=== PATIENT | male | born 1975 | race Caucasian/White ===

== ENCOUNTER 2019-12-18 22:13 | Emergency (ER) | payer BC ==
[~2019-12-18] VITALS: Ht 167.6 cm; Wt 56.7 kg
[2019-12-18] MEDS ORDERED: SODIUM CHLORIDE 0.9% 1000ML 1,000 ML IV ONE (22:30)
--- NOTE | 2019-12-18 22:38 | Emergency Department Note ---
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 EATING OR DRINKING WELL FOR THE PAST FEW DAYS, STATES FEELS WEAK/DIZZY, WAS TOLD BY COWORKERS THAT HE PASSED OUT TODAY, +NAUSEA, NO VOMITING; PT IN NAD, PT STATES IT IS VERY HOT IN THE WAREHOUSE Historian: Patient Arrival Mode: Car Onset (how long ago): hour(s) (3) Location: ALL OVER Quality: WEAK, LIGHT HEADED Radiation: Reports non-radiation Severity: moderate Onset quality: unable to specify Duration (how long): day(s) (2) Timing of current episode: constant Progression: worsening Context: Reports other (TOLD BY [employer] WORKERS HE PASSED OUT IN BREAK ROOM); Denies recent illness, Denies recent surgery Relieving factors: none Exacerbating factors: none Associated symptoms: Reports denies other symptoms Past Medical/Family History Physician Review I have reviewed the patient's past medical and family history. Any updates have been documented here. Past Medical History Recent Fever: No Clinical Suspicion of Infectio: No New/Unexplained Change in Ment: No Past Medical History: None Past Surgical History: None Social History Smoking Cessation: Never Smoker Alcohol Use: Occasional Any Illegal Drug Use: No Physically hurt or threatened: No Family History Family history of heart diseas: Yes Other family history HTN,CAD Review of Systems Review of Systems Constitutional: Reports weakness EENTM: Reports no symptoms Cardiovascular: Reports no symptoms Respiratory: Reports no symptoms Gastrointestinal: Reports no symptoms Genitourinary: Reports no symptoms Musculoskeletal: Reports no symptoms Integumentary: Reports no symptoms Neurological: Reports as per HPI Psychological: Reports no symptoms Endocrine: Reports no symptoms Hematological/Lymphatic: Reports no symptoms Physical Exam Related Data Triage Vital Signs Vital Signs Date Time Temp Pulse Resp B/P (MAP) Pulse Ox O2 Delivery O2 Flow Rate FiO2 12/18/19 22:22 98.3 69 16 117/80 100 Room Air Vital signs reviewed: Yes Physical Exam CONSTITUTIONAL Constitutional: Present well-developed, Present well-nourished HENT HENT: Present normocephalic, Present atraumatic, Present mucosae dry, Present nose normal HENT L/R: Present left ext ear normal, Present right ext ear normal EYES Eyes: Reports PERRL, Reports conjunctivae normal NECK Neck: Present ROM normal PULMONARY Pulmonary: Present effort normal, Present breath sounds normal CARDIOVASCULAR Cardiovascular: Present regular rhythm, Present heart sounds normal, Present capillary refill normal, Present normal rate GASTROINTESTINAL Abdominal: Present soft, Present nontender, Present bowel sounds normal GENITOURINARY Genitourinary: Present exam deferred SKIN Skin: Present warm, Present dry MUSCULOSKELETAL Musculoskeletal: Present ROM normal NEUROLOGICAL Neurological: Present alert, Present oriented x 3, Present no gross motor or sensory deficits PSYCHOLOGICAL Psychological: Present mood/affect normal, Present judgement normal Results Laboratory Laboratory Laboratory Tests Test 12/18/19 22:30 12/18/19 22:25 Urine Color Yellow (YELLOW) Urine Clarity Clear (CLEAR) Urine pH 7 (5 - 7) Urine Specific [place] 1.020 (1.010-1.025) Urine Protein Negative (NEGATIVE) Urine Glucose (UA) Negative (NEGATIVE) Urine Ketones Negative (NEGATIVE) Urine Blood Negative (NEGATIVE) Urine Nitrite Negative (NEGATIVE) Urine Bilirubin Negative (NEGATIVE) Urine Urobilinogen 0.2 mg/dL (0.2 - 1) Urine Leukocyte Esterase Negative (NEGATIVE) Urine RBC 0-5 /HPF (0-5) Urine WBC 0-5 /HPF (0-5) Urine Epithelial Cells Rare /LPF (NONE) Urine Bacteria Few /HPF (NONE) Urine Mucus Few (RARE) Urine Opiates Screen Negative (NEGATIVE) Urine Methadone Screen Negative (NEGATIVE) Urine Barbiturates Screen Negative (NEGATIVE) Urine Phencyclidine Screen Negative (NEGATIVE) Urine Amphetamines Screen Negative (NEGATIVE) Urine Methamphetamines Screen Negative (NEGATIVE) Urine Benzodiazepines Screen Negative (NEGATIVE) Urine Cocaine Screen Negative (NEGATIVE) Urine Cannabinoids Screen Positive (NEGATIVE) White Blood Count 16.38 x10e3/uL (4.8-10.8) Red Blood Count 4.47 x10e6/uL (4.3-5.7) Hemoglobin 14.0 g/dL (14.0-18.0) Hematocrit 41.2 % (38.2-49.6) Mean Corpuscular Volume 92.2 fL (81-99) Mean Corpuscular Hemoglobin 31.3 pg (28-32) Mean Corpuscular Hemoglobin Concent 34.0 g/dL (31-35) Red Cell Distribution Width 13.0 % (11.7-14.4) Platelet Count 397 x10e3/uL (140-360) Neutrophils (%) (Auto) 83.3 % (38.7-80.0) Lymphocytes (%) (Auto) 10.0 % (18.0-39.1) Monocytes (%) (Auto) 5.3 % (4.4-11.3) Eosinophils (%) (Auto) 0.3 % (0.0-6.0) Basophils (%) (Auto) 0.6 % (0.0-1.0) Neutrophils # (Auto) 13.6 (2.1-6.9) Lymphocytes # (Auto) 1.6 (1.0-3.2) Monocytes # (Auto) 0.9 (0.2-0.8) Eosinophils # (Auto) 0.1 (0.0-0.4) Basophils # (Auto) 0.1 (0.0-0.1) Absolute Immature Granulocyte (auto 0.08 x10e3/uL (0-0.1) Sodium Level 139 mmol/L (136-145) Potassium Level 4.1 mmol/L (3.5-5.1) Chloride Level 102 mmol/L (98-107) Carbon Dioxide Level 27 mmol/L (22-29) Anion Gap 14.1 mmol/L (8-16) Blood Urea Nitrogen 6 mg/dL (7-26) Creatinine 0.98 mg/dL (0.72-1.25) Estimat Glomerular Filtration Rate > 60 ML/MIN (60-) BUN/Creatinine Ratio 6 (6-25) Glucose Level 97 mg/dL (74-118) Calcium Level 9.1 mg/dL (8.4-10.2) Total Bilirubin 0.5 mg/dL (0.2-1.2) Aspartate Amino Transf (AST/SGOT) 30 IU/L (5-34) Alanine Aminotransferase (ALT/SGPT) 29 IU/L (0-55) Alkaline Phosphatase 68 IU/L (40-150) Creatine Kinase 177 IU/L (30-200) Creatine Kinase MB 1.70 ng/mL (0-5.0) Troponin I 0.018 ng/mL (0-0.300) Total Protein 7.4 g/dL (6.5-8.1) Albumin 4.3 g/dL (3.5-5.0) Globulin 3.1 g/dL (2.3-3.5) Albumin/Globulin Ratio 1.4 (0.8-2.0) Lab results reviewed: Yes Imaging Imaging results reviewed: Yes Impressions EXAMINATION: Head CT without contrast. HISTORY:Fainted, dehydrated. COMPARISON:None. TECHNIQUE: Multidetector axial images were obtained from the foramen magnum to the vertex without contrast. The images were reconstructed using brain and bone algorithms. Thin section brain images were reformatted into coronal and sagittal planes. Dose modulation, iterative reconstruction, and/or weight based adjustment of the mA/kV was utilized to reduce the radiation dose to as low as reasonably achievable. Intravenous contrast: None IMAGE QUALITY: Acceptable. FINDINGS: Skull/scalp: No lytic or blastic. lesions. No surgical changes. Parenchyma: No abnormal density. No acute hemorrhage, mass or acute major vascular territorial infarct. Arteries: No density suggestive of thrombosis. Dural sinuses: No abnormal density suggestive of thrombosis. Ventricles: No hydrocephalus or displacement. Extra-axial spaces: Incidental 1 cm right choroidal fissure cyst. Brain volume: Normal for age. Craniocervical junction: No mass, Chiari malformation, or basilar invagination. Sella: No mass. Paranasal/mastoid sinuses: Imaged portions unremarkable. IMPRESSION: No acute intracranial abnormality. Incidental right choroidal fissure cyst. Signed by: Dr. Samantha Ann M.D. on 12/18/2019 10:52 PM Procedures 12 Lead ECG Interpretation ECG Interpretation : ECG: ECG 1 Undercoater: Interpreted by ED physician Date: Dec 18, 2019 Time: 22:29 Rhythm: sinus rhythm Rate: normal BPM: 69 QRS axis: normal ST segments normal: Yes T waves normal: Yes Other findings: early repolarization Clinical Impression: non-specific ECG Additional Comments T WAVES APPEAR PEAKED. Assessment & Plan Medical Decision Making MDM PT WITH [employer] AT WORK, REPORTS FEELS WEAK AND LIGHT HEADED. CBC, CMP, CARDIAC ENZYMES, UA, UDS, CT BRAIN ORDERED TO EVAL FOR DEHYDRATION, ELECTROLYTE ABNORMALITY, UTI, RHABDOMYOLYSIS, MYOCARDIAL INFARCTION, INTRACRANIAL ABNORMALITY NS 1 LITER IV BOLUS ORDERED Assessment & Plan Final Impression: (1) Heat exhaustion Depart Disposition: HOME, SELF-CARE Last Vital Signs Date Time Temp Pulse Resp B/P (MAP) Pulse Ox O2 Delivery O2 Flow Rate FiO2 12/18/19 22:22 98.3 69 16 117/80 100 Room Air Medications in the ED Sodium Chloride 1,000 ml @ 999 mls/hr Q1H1M ONCE IV ; Start 12/18/19 at 22:30; Stop 12/18/19 at 23:30 RUSS MARTINEZ MD Dec 18, 2019 22:38
[2019-12-18 22:39] LABS: BASOPHILS # (AUTO) 0.1 (0.0-0.1); BASOPHILS % 0.6 % (0.0-1.0); EOSINOPHILS # (AUTO) 0.1 (0.0-0.4); EOSINOPHILS % 0.3 % (0.0-6.0); HEMATOCRIT 41.2 % (38.2-49.6); LYMPHOCYTES # (AUTO) 1.6 (1.0-3.2); MEAN CORPUSCULAR HEMOGLOBIN 31.3 pg (28-32); MEAN CORPUSCULAR VOLUME 92.2 fL (81-99); MONOCYTES # (AUTO) 0.9 (0.2-0.8); MONOCYTES % 5.3 % (4.4-11.3); NEUTROPHILS # (AUTO) 13.6 (2.1-6.9); NEUTROPHILS % 83.3 % (38.7-80.0); PLATELET COUNT 397 x10e3/uL (140-360); RED BLOOD COUNT 4.47 x10e6/uL (4.3-5.7)
[2019-12-18 22:44] LABS: AMPHETAMINES SCREEN,URINE NEGATIVE (NEGATIVE); BENZODIAZEPINES SCREEN,URINE NEGATIVE (NEGATIVE); BILIRUBIN,URINE NEGATIVE (NEGATIVE); CLARITY,URINE CLEAR (CLEAR); COLOR,URINE YELLOW (YELLOW); KETONES,URINE NEGATIVE (NEGATIVE); LEUKOCYTE ESTERASE ,URINE NEGATIVE (NEGATIVE); NITRITE,URINE NEGATIVE (NEGATIVE); PHENCYCLIDINE SCREEN,URINE NEGATIVE (NEGATIVE); PROTEIN,URINE DIPSTICK NEGATIVE (NEGATIVE); URINE UROBILINOGEN 0.2 mg/dL (0.2 - 1)
[2019-12-18 22:49] LABS: BACTERIA,URINE FEW /HPF; EPITHELIAL CELLS,URINE RARE /LPF; MUCUS,URINE FEW (RARE); RBC,URINE 0-5 /HPF (0-5); WBC,URINE (MAN) 0-5 /HPF (0-5)
--- NOTE | 2019-12-18 22:56 | Diagnostic Imaging Report ---
EXAMINATION: Head CT without contrast. HISTORY:Fainted, dehydrated. COMPARISON:None. TECHNIQUE: Multidetector axial images were obtained from the foramen magnum to the vertex without contrast. The images were reconstructed using brain and bone algorithms. Thin section brain images were reformatted into coronal and sagittal planes. Dose modulation, iterative reconstruction, and/or weight based adjustment of the mA/kV was utilized to reduce the radiation dose to as low as reasonably achievable. Intravenous contrast: None IMAGE QUALITY: Acceptable. FINDINGS: Skull/scalp: No lytic or blastic. lesions. No surgical changes. Parenchyma: No abnormal density. No acute hemorrhage, mass or acute major vascular territorial infarct. Arteries: No density suggestive of thrombosis. Dural sinuses: No abnormal density suggestive of thrombosis. Ventricles: No hydrocephalus or displacement. Extra-axial spaces: Incidental 1 cm right choroidal fissure cyst. Brain volume: Normal for age. Craniocervical junction: No mass, Chiari malformation, or basilar invagination. Sella: No mass. Paranasal/mastoid sinuses: Imaged portions unremarkable. IMPRESSION: No acute intracranial abnormality. Incidental right choroidal fissure cyst. Signed by: Dr. Samantha Ann M.D. on 12/18/2019 10:52 PM
[2019-12-18 22:58] LABS: ALANINE AMINOTRANSFERASE 29 IU/L (0-55); ALBUMIN 4.3 g/dL (3.5-5.0); ALBUMIN/GLOBULIN RATIO 1.4 (0.8-2.0); ALKALINE PHOSPHATASE 68 IU/L (40-150); ANION GAP 14.1 mmol/L (8-16); BLOOD UREA NITROGEN 6 mg/dL (7-26); BUN/CREATININE RATIO 6 (6-25); CALCIUM 9.1 mg/dL (8.4-10.2); CARBON DIOXIDE 27 mmol/L (22-29); CHLORIDE 102 mmol/L (98-107); CREATINE KINASE 177 IU/L (30-200); CREATININE, SERUM 0.98 mg/dL (0.72-1.25); EST GLOMERULAR FILTRATION RATE > 60 ML/MIN (60-); GLUCOSE 97 mg/dL (74-118); POTASSIUM 4.1 mmol/L (3.5-5.1); SODIUM 139 mmol/L (136-145)
[2019-12-18 23:50] VITALS: BP 132/98
== END 2019-12-19 00:02 | disposition home or self-care (01) ==
LOC: ER 22:35
DX: T67.5XXA Heat exhaustion, unspecified, initial encounter (principal); R53.1 Weakness; R42 Dizziness and giddiness; I10 Essential (primary) hypertension; I25.10 Atherosclerotic heart disease of native coronary artery without angina pectoris
CPT/HCPCS: 36415; 70450; 80053; 80307; 81001; 82550; 82553; 84484; 85025; 93005; 99284; J7030

== ENCOUNTER → 2020-12-26 | Emergency (ER) | payer BC ==
[~2020-12-26] VITALS: Ht 167.6 cm; Wt 59.0 kg
== END | disposition home or self-care (01) ==
LOC: ER 13:01
DX: R63.4 Abnormal weight loss (principal); R14.0 Abdominal distension (gaseous); F17.210 Nicotine dependence, cigarettes, uncomplicated
CPT/HCPCS: 99282

== ENCOUNTER 2021-06-08 19:10 | Emergency (ER) | payer BC ==
[~2021-06-08] VITALS: Ht 167.6 cm; Wt 59.0 kg
[2021-06-08] MEDS ORDERED: ALBUTEROL SULFATE HFA 8GM INHALATION AEROSOL INH PRN (19:30)
[2021-06-08] MEDS ORDERED: METHYLPREDNISOLONE SOD SUCC 125 MG/2ML VIAL IM ONE (19:30)
[2021-06-08] MEDS ORDERED: ALBUTEROL SULFATE HFA 8GM INHALATION AEROSOL INH ONE (19:31)
[2021-06-08] MEDS ORDERED: METHYLPREDNISOLONE SOD SUCC 125 MG/2ML VIAL ONE (19:31)
== END 2021-06-08 21:42 | disposition home or self-care (01) ==
LOC: ER 19:42
DX: U07.1 COVID-19 (principal); F17.200 Nicotine dependence, unspecified, uncomplicated
CPT/HCPCS: 71045; 99283; J2930; U0002

== ENCOUNTER 2022-03-31 23:55 | Inpatient (IN) | payer SELFPAY ==
[~2022-03-31] VITALS: Ht 167.6 cm; Wt 63.2 kg
[2022-04-01 00:26] LABS: BASOPHILS # (AUTO) 0.1 (0.0-0.1); BASOPHILS % 0.5 % (0.0-1.0); EOSINOPHILS # (AUTO) 0.5 (0.0-0.4); EOSINOPHILS % 3.6 % (0.0-6.0); HEMATOCRIT 44.3 % (38.2-49.6); HEMOGLOBIN 14.5 g/dL (14.0-18.0); LYMPHOCYTES # (AUTO) 2.6 (1.0-3.2); LYMPHOCYTES % 19.5 % (18.0-39.1); MEAN CORPUSCULAR HEMOGLOBIN 31.3 pg (28-32); MEAN CORPUSCULAR HGB CONC 32.7 g/dL (31-35); MEAN CORPUSCULAR VOLUME 95.7 fL (81-99); MONOCYTES # (AUTO) 1.3 (0.2-0.8); MONOCYTES % 9.6 % (4.4-11.3); NEUTROPHILS # (AUTO) 8.8 (2.1-6.9); NEUTROPHILS % 66.5 % (38.7-80.0); PLATELET COUNT 437 x10e3/uL (140-360); RED BLOOD COUNT 4.63 x10e6/uL (4.3-5.7); RED CELL DISTRIBUTION WIDTH 12.4 % (11.7-14.4)
[2022-04-01 00:31] LABS: INR 0.82; PROTHROMBIN TIME 12.1 seconds (11.9-14.5)
[2022-04-01 00:32] LABS: PARTIAL THROMBOPLASTIN TIME 36.2 seconds (23.8-35.5)
[2022-04-01 00:39] LABS: ALBUMIN 3.8 g/dL (3.5-5.0); ANION GAP 15.6 mmol/L (8-16); CALCIUM 9.1 mg/dL (8.4-10.2); CREATININE, SERUM 0.93 mg/dL (0.72-1.25); POTASSIUM 3.6 mmol/L (3.5-5.1)
[2022-04-01 01:06] LABS: CLARITY,URINE CLEAR (CLEAR); COLOR,URINE YELLOW (YELLOW); KETONES,URINE NEGATIVE (NEGATIVE); LEUKOCYTE ESTERASE ,URINE NEGATIVE (NEGATIVE); NITRITE,URINE NEGATIVE (NEGATIVE); PROTEIN,URINE DIPSTICK NEGATIVE (NEGATIVE); URINE UROBILINOGEN 1 mg/dL (0.2 - 1)
[2022-04-01 01:10] LABS: AMPHETAMINES SCREEN,URINE NEGATIVE (NEGATIVE); BENZODIAZEPINES SCREEN,URINE POSITIVE (NEGATIVE); PHENCYCLIDINE SCREEN,URINE NEGATIVE (NEGATIVE)
[2022-04-01 01:11] LABS: BACTERIA,URINE RARE /HPF; EPITHELIAL CELLS,URINE RARE /LPF; WBC,URINE (MAN) 0-5 /HPF (0-5)
[2022-04-01] MEDS ORDERED: KETOROLAC TROMETHAMINE 30 MG/ML VIAL IV STA (01:44)
[2022-04-01] MEDS ORDERED: KETOROLAC TROMETHAMINE 30 MG/ML VIAL ONE (01:58)
[2022-04-01] MEDS ORDERED: ONDANSETRON HCL INJ 2MG/ML 2ML 2 MG/ML VIAL IV STA (02:58)
[2022-04-01] MEDS ORDERED: Morphine 4mg INJECTION 4 MG/ML INJ IV ONE (03:00)
[2022-04-01] MEDS ORDERED: ONDANSETRON HCL INJ 2MG/ML 2ML 2 MG/ML VIAL IV PRN (03:00)
[2022-04-01] MEDS ORDERED: SODIUM CHLORIDE FLUSH 10 ML SYR INJ PRN (03:00)
[2022-04-01] MEDS ORDERED: LIDOCAINE HCL 1% LOCAL INJ 20 ML VIAL ONE (03:02)
[2022-04-01 03:21] LABS: APPEARANCE,CSF CLEAR (CLEAR); COLOR,CSF COLORLESS (COLORLESS); TUBE NUMBER 3
[2022-04-01 03:24] LABS: WHITE BLOOD CELL,CSF 1 cells/uL (0-5)
[2022-04-01] MEDS ORDERED: HYDRALAZINE HCL 20 MG/ML VIAL IV PRN (05:15)
[2022-04-01] MEDS ORDERED: ACETAMINOPHEN 325 MG TAB PO PRN (05:15)
[2022-04-01 06:41] VITALS: BP 127/76
[2022-04-01 07:50] VITALS: BP 122/79
[2022-04-01 08:41] VITALS: BP 188/66
[2022-04-01] MEDS ORDERED: HYDROCODONE/APAP 7.5MG-325MG 1 EA TAB PO PRN (09:30)
[2022-04-01] MEDS: DOCUSATE SODIUM 100 MG CAP PO SCH ×2 (09:30→16:11)
[2022-04-01] MEDS: FAMOTIDINE 20 MG TAB PO SCH ×2 (09:31→16:11)
[2022-04-01] MEDS ORDERED: SODIUM CHLORIDE 0.9% 100 ML ONE (09:43)
[2022-04-01] MEDS ORDERED: IOPAMIDOL 370 MG/ML 100 ML INFUS..BTL INJ ONE (09:43)
[2022-04-01 11:00] LABS: CHOL/HDL RATIO 3.6 (3.9-4.7)
[2022-04-01 11:23] LABS: THYROID STIMULATING HORMONE 0.966 uIU/mL (0.350-4.940)
[2022-04-01] MEDS: Morphine 2mg Syringe 2 MG/ML SYR IV PRN ×3 (11:32→20:32)
[2022-04-01 11:42] LABS: HIV 1&2 AB SCREEN NON-REACTIVE (NONREACTIVE)
[2022-04-01 16:16] VITALS: BP 149/90
[2022-04-01 20:00] VITALS: BP 145/88
[2022-04-01] MEDS: ATORVASTATIN 40 MG TAB PO SCH (20:31)
[2022-04-01 21:00] VITALS: BP 145/88
[2022-04-02] VITALS (13 sets, daily range): BP systolic 123–172; BP diastolic 76–108
[2022-04-02] MEDS: Morphine 2mg Syringe 2 MG/ML SYR IV PRN ×4 (00:53→15:40)
[2022-04-02 05:15] LABS: BASOPHILS # (AUTO) 0.1 (0.0-0.1); BASOPHILS % 0.7 % (0.0-1.0); EOSINOPHILS # (AUTO) 0.3 (0.0-0.4); EOSINOPHILS % 2.5 % (0.0-6.0); HEMATOCRIT 42.2 % (38.2-49.6); LYMPHOCYTES # (AUTO) 2.8 (1.0-3.2); LYMPHOCYTES % 20.3 % (18.0-39.1); MEAN CORPUSCULAR HEMOGLOBIN 31.3 pg (28-32); MEAN CORPUSCULAR HGB CONC 33.2 g/dL (31-35); MEAN CORPUSCULAR VOLUME 94.4 fL (81-99); MONOCYTES # (AUTO) 1.3 (0.2-0.8); MONOCYTES % 9.6 % (4.4-11.3); NEUTROPHILS # (AUTO) 9.1 (2.1-6.9); NEUTROPHILS % 66.5 % (38.7-80.0); PLATELET COUNT 435 x10e3/uL (140-360); RED BLOOD COUNT 4.47 x10e6/uL (4.3-5.7); RED CELL DISTRIBUTION WIDTH 12.2 % (11.7-14.4)
[2022-04-02 05:36] LABS: ANION GAP 15.4 mmol/L (8-16); CHOL/HDL RATIO 4.5 (3.9-4.7); CREATININE, SERUM 0.73 mg/dL (0.72-1.25); MAGNESIUM 1.8 MG/DL (1.3-2.1); PHOSPHORUS 2.8 MG/DL (2.3-4.7); POTASSIUM 3.4 mmol/L (3.5-5.1)
[2022-04-02 05:57] LABS: THYROID STIMULATING HORMONE 1.425 uIU/mL (0.350-4.940)
[2022-04-02] MEDS: FAMOTIDINE 20 MG TAB PO SCH ×2 (08:56→17:45)
[2022-04-02] MEDS: DOCUSATE SODIUM 100 MG CAP PO SCH ×2 (08:56→17:48)
[2022-04-02] MEDS: ASPIRIN 81 MG ENTERIC COATED PO SCH (08:56)
[2022-04-02] MEDS ORDERED: ONDANSETRON HCL 4 MG ORAL DISINTEGRATING TAB PO PRN (11:30)
[2022-04-02] MEDS ORDERED: POTASSIUM CHLORIDE 10MEQ EA PO ONE (15:00)
[2022-04-02] MEDS: POLYETHYLENE GLYCOL 3350 17 GM PACK PO PRN (17:44)
[2022-04-02] MEDS: METHOCARBAMOL INJ 750 MG in SODIUM CHLORIDE 0.9% 100 ML IV SCH (17:57)
[2022-04-02] MEDS: KETOROLAC TROMETHAMINE 30 MG/ML VIAL IM SCH (17:57)
[2022-04-02] MEDS ORDERED: METHOCARBAMOL 100MG/1ML 10ML VIAL IV SCH (18:00)
[2022-04-02] MEDS: ATORVASTATIN 40 MG TAB PO SCH (22:15)
[2022-04-03] MEDS: KETOROLAC TROMETHAMINE 30 MG/ML VIAL IM SCH ×3 (00:23→11:48)
[2022-04-03] MEDS: METHOCARBAMOL INJ 750 MG in SODIUM CHLORIDE 0.9% 100 ML IV SCH ×3 (00:23→11:49)
[2022-04-03] MEDS ORDERED: SODIUM CHLORIDE 0.9% 250ML 250 ML ONE (00:40)
[2022-04-03 01:05] VITALS: BP 134/72
[2022-04-03 06:04] VITALS: BP 124/76
[2022-04-03 08:00] VITALS: BP 128/83
[2022-04-03] MEDS: ASPIRIN 81 MG ENTERIC COATED PO SCH (09:53)
[2022-04-03] MEDS: POLYETHYLENE GLYCOL 3350 17 GM PACK PO PRN (09:53)
[2022-04-03] MEDS: FAMOTIDINE 20 MG TAB PO SCH (09:53)
[2022-04-03] MEDS: DOCUSATE SODIUM 100 MG CAP PO SCH (09:53)
[2022-04-03 11:21] VITALS: BP 121/83
[2022-04-03] MEDS ORDERED: METHOCARBAMOL750 MG PO (15:13)
[2022-04-03 15:54] VITALS: BP 128/94
== END 2022-04-03 16:03 | disposition home or self-care (01) | DRG 918 ==
LOC: ER 23:59 → ERHOLD 04-01 03:02 → MED/SURG3 04-01 06:32 → OBSVTOIN 04-02 16:11
PROVIDERS: ADMIT Internal Medicine; ATTEND Internal Medicine
PROC: 009U3ZX Drainage of Spinal Canal, Percutaneous Approach, Diagnostic (ICD-10-PCS; principal; 2022-04-02)
DX: T40.711A Poisoning by cannabis, accidental (unintentional), initial encounter (principal); R29.1 Meningismus; M47.812 Spondylosis without myelopathy or radiculopathy, cervical region; G44.86 Cervicogenic headache; R41.82 Altered mental status, unspecified; M54.2 Cervicalgia; R55 Syncope and collapse; R13.10 Dysphagia, unspecified; M21.611 Bunion of right foot; K00.7 Teething syndrome; D75.839 Thrombocytosis, unspecified; Z80.0 Family history of malignant neoplasm of digestive organs; F17.210 Nicotine dependence, cigarettes, uncomplicated; F12.90 Cannabis use, unspecified, uncomplicated; Z20.822 Contact with and (suspected) exposure to COVID-19
CPT/HCPCS: 36415; 70450; 70496; 70498; 70551; 71045; 72141; 74230; 80048; 80053; 80061; 80307; 80320; 81001; 82607; 82945; 83036; 83735; 84100; 84157; 84443; 84484; 85025; 85610; 85730; 86592; 87070; 87205; 87390; 87400; 89051; 93005; 93880; 94799; 95819; 99284; G0378; G0433; G0435; J1885; J2001; J2270; J2405; J2800; J7050; Q9967